=== PATIENT | female | born 2000 | race Caucasian/White ===

== ENCOUNTER 2024-01-31 12:11 | Emergency (ER) | payer OTHER, SELFPAY ==
[2024-01-31 12:29] VITALS: BP 168/115
--- NOTE | 2024-01-31 15:13 | ED.GENMED ---
History of Present Illness
<Jamal Hager PA-C - Last Filed: 01/31/24 19:09>
General
Chief Complaint: Female [employer] Pumper/Gu symptoms
Source: patient
Time Seen by Provider: 01/31/24 14:55
Travel History
Have you had any contact with someone who has COVID-19?: No
Do you have any symptoms of coronavirus? Fever > 100 degrees, chills, cough, shortness of breath, sore throat, loss of taste or smell, muscle aches, or headache?: No
History of Present Illness
History of Present Illness:
23-year-old female with no significant past medical history presenting to the emergency department for evaluation of dysuria x 2 days accompanied with bilateral flank pain that started earlier today and on arrival to the emergency department states
pain was a 10 out of 10 but upon time of my evaluation patient's pain is now a 4 out of 10. She states that about 2 weeks ago was treated for a urinary tract infection by the primary care provider symptoms mostly resolving but that they restarted 2
days ago. Patient states she went back to her primary care on Sunday who performed a urinalysis but that the results of this urine are still unknown. Patient admits to associated nausea but no vomiting. She denies any fevers but does admit to
chills earlier today. 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 Patient has no other concerns
at this time.
Past History
<Jamal Hager PA-C - Last Filed: 01/31/24 19:09>
Past History
ED Past Medical History: None
ED Past Surgical History: None
Social History
Tobacco: Non-smoker
Alcohol: Occasional
Drug: None
Personal: Single
Living: with family
Employment: Employed
Review of Systems
<Jamal Hager PA-C - Last Filed: 01/31/24 19:09>
Review of Systems
All Other Systems: ROS reviewed and negative except as documented in HPI and ROS
Phy Exam
<Jamal Hager PA-C - Last Filed: 01/31/24 19:09>
Physical Exam
Physical Exam:
GENERAL: Alert , in no apparent distress
EYE: clear conjunctiva b/l
HEAD: NCAT
ENT: o/p clr, mmm.
ABDOMEN: Soft, without focal tenderness, no r/g, mild bilateral flank tenderness but left is worse than right
NEUROLOGICAL: Alert and oriented
SKIN: Warm and dry, skin intact.
MUSCULOSKELETAL: No edema, well perfused.
PSYCH: Normal and appropriate interaction.
Scores
<NEW Chaudhary Last Filed: 01/31/24 19:09>
Heart Failure Risk
Heart Failure Risk Score: Not Applicable
Heart Score for Chest Pain Patients
STEMI patient?: Not applicable
Withdrawal Assessment of Alcohol
Withdrawal Assessment Completed?: Not applicable
Course
<NEW Chaudhary Last Filed: 01/31/24 19:09>
Orders/Labs/Results
Orders:
Orders
01/31/24 15:10
Test Result ONCE
01/31/24 15:25
Complete Blood Count/With Diff Urgent
Comprehensive Metabolic Panel Urgent
HCG, Serum Qualitative Screen Urgent
Urinalysis Reflex To Culture Urgent
Date Specimen was Collected: 01/31/24
Time Specimen was Collected: 15:17
Urine Microscopic Reflex Cult Urgent
Chlamydia/GC by PCR Urgent
SOWMYA Source: Urine
Specimen Description:
Source:: URINE
Date Specimen was Collected: 01/31/24
Time Specimen was Collected: 15:17
Urine Culture Urgent
SOWMYA Source: U
Specimen Description:
Date Specimen was Collected: 01/31/24
Time Specimen was Collected: 15:17
01/31/24 16:47
CT Abd/pel Without Iv Or Oral Urgent
Comment:
Reason For Exam: flank pain, urinary symptoms, recent UTI
01/31/24 19:18
Cefuroxime Axetil [Ceftin] 500 mg PO NOW STA
Abnormal Lab Results
01/31/24
15:25
WBC 11.9 H 10^3/uL
(4.8-10.8)
MPV 10.8 H fL
(7.4-10.4)
Absolute Neuts (auto) 10.0 H 10^3/uL
(1.4-6.5)
Absolute Lymphs (auto) 1.1 L 10^3/uL
(1.2-3.4)
Absolute Monos (auto) 0.7 H 10^3/uL
(0.1-0.6)
Neutrophils % 84.1 H %
(42.2-75.2)
Lymphocytes % 9.6 L %
(20.5-51.1)
Carbon Dioxide 21 L mmol/L
(22-30)
Total Bilirubin 1.4 H mg/dl
(0.2-1.3)
ALT 44 H U/L
(0-35)
Urine Ketones 2+ A
(Negative)
Ur Occult Blood Reflex 4+ A
(Negative)
Leukocyte Esterase Rfl 2+ A
(Negative)
Urine RBC 50-60 A /HPF
(0-2)
Urine WBC (Reflex) >100 A /HPF
(0-5)
Urine Bacteria (Reflex) Moderate A
(Negative)
Urine Albumin (Reflex) 1+ A
(Neg - Trace)
01/31/24 15:25
01/31/24 15:25
Vital Signs
Initial and Last Documented VS:
Initial Vital Signs
Temp Pulse Resp BP Pulse Ox
98.3 F 101 18 168/115 98
01/31/24 12:29 01/31/24 12:29 01/31/24 12:29 01/31/24 12:29 01/31/24 12:29
Last Documented Vital Signs
Temp Pulse Resp BP Pulse Ox
99.6 F 101 18 168/115 98
01/31/24 18:48 01/31/24 12:29 01/31/24 12:29 01/31/24 12:29 01/31/24 12:29
<Myriam Prescott PA-C - Last Filed: 02/03/24 07:14>
Orders/Labs/Results
Orders:
Orders
01/31/24 15:10
Test Result ONCE
01/31/24 15:25
Complete Blood Count/With Diff Urgent
Comprehensive Metabolic Panel Urgent
HCG, Serum Qualitative Screen Urgent
Urinalysis Reflex To Culture Urgent
Date Specimen was Collected: 01/31/24
Time Specimen was Collected: 15:17
Urine Microscopic Reflex Cult Urgent
Chlamydia/GC by PCR Urgent
S[facility]MYA Source: Urine
Specimen Description:
Source:: URINE
Date Specimen was Collected: 01/31/24
Time Specimen was Collected: 15:17
Urine Culture Urgent
SOWMYA Source: U
Specimen Description:
Date Specimen was Collected: 01/31/24
Time Specimen was Collected: 15:17
01/31/24 16:47
CT Abd/pel Without Iv Or Oral Urgent
Comment:
Reason For Exam: flank pain, urinary symptoms, recent UTI
01/31/24 19:18
Cefuroxime Axetil [Ceftin] 500 mg PO NOW STA
Abnormal Lab Results
01/31/24
15:25
WBC 11.9 H 10^3/uL
(4.8-10.8)
MPV 10.8 H fL
(7.4-10.4)
Absolute Neuts (auto) 10.0 H 10^3/uL
(1.4-6.5)
Absolute Lymphs (auto) 1.1 L 10^3/uL
(1.2-3.4)
Absolute Monos (auto) 0.7 H 10^3/uL
(0.1-0.6)
Neutrophils % 84.1 H %
(42.2-75.2)
Lymphocytes % 9.6 L %
(20.5-51.1)
Carbon Dioxide 21 L mmol/L
(22-30)
Total Bilirubin 1.4 H mg/dl
(0.2-1.3)
ALT 44 H U/L
(0-35)
Urine Ketones 2+ A
(Negative)
Ur Occult Blood Reflex 4+ A
(Negative)
Leukocyte Esterase Rfl 2+ A
(Negative)
Urine RBC 50-60 A /HPF
(0-2)
Urine WBC (Reflex) >100 A /HPF
(0-5)
Urine Bacteria (Reflex) Moderate A
(Negative)
Urine Albumin (Reflex) 1+ A
(Neg - Trace)
01/31/24 15:25
01/31/24 15:25
Vital Signs
Initial and Last Documented VS:
Initial Vital Signs
Temp Pulse Resp BP Pulse Ox
98.3 F 101 18 168/115 98
01/31/24 12:29 01/31/24 12:29 01/31/24 12:29 01/31/24 12:29 01/31/24 12:29
Last Documented Vital Signs
Temp Pulse Resp BP Pulse Ox
99.6 F 101 18 168/115 98
01/31/24 18:48 01/31/24 12:29 01/31/24 12:29 01/31/24 12:29 01/31/24 12:29
<Jamal Hager PA-C - Last Filed: 01/31/24 19:09>
MDM/Problems Addressed
Differential Diagnosis Includes:
Cystitis, pyelonephritis, renal/ureteral colic, musculoskeletal back pain, , ovarian cyst
MDM/Problems Addressed:
23-year-old female presenting emergency department for evaluation of urinary symptoms x 2 days, recently completed Macrobid for a urinary tract infection a little more than a week and a half ago. On arrival to the emergency department patient notes
that she had considerable 10 out of 10 pain but pain presently is down to a 4 out of 10 without any intervention. Will check labs, urine, hCG. Patient declining anything for pain at this time. Disposition pending.
<Jamal Hager PA-C - Last Filed: 01/31/24 19:09>
*Radiology
Radiology exam reviewed: radiology read reviewed
*Pulse Oximetry
Patient hypoxic: no
*Critical Care Note
Total Time (30-74mins, 75-104mins- exclusive of procedures): Not Applicable
<Jamal Hager PA-C - Last Filed: 01/31/24 19:09>
Comment
Comment:
4:50 PM:. Patient's labs reveal a leukocytosis of 11.9 with a leftward shift. Chemistry is largely unremarkable. Urinalysis shows 4+ microscopic hematuria, 2+ leukocyte esterase, urine RBCs 50-60 and urine WBCs greater than 100. Concern for Santhosh
versus infected kidney stone. CT of the abdomen and pelvis was ordered. Patient continues to decline anything for pain or nausea.
Patient Management
Escalation/DeEscalation of care consider admission/obs:
7 PM: Patient CT scan without any acute abnormalities. Will treat patient with cefuroxime for UTI/pyelonephritis. Patient is aware of return precautions. Otherwise stable for discharge home and outpatient follow-up.
<Myriam Prescott PA-C - Last Filed: 02/03/24 07:14>
Update Note
Update Note:
02/03/2024 0714 AM finalized urine culture pansensitive E. coli on a cephalosporin no treatment change required
ED Attending Note
<Jamal Hager PA-C - Last Filed: 01/31/24 19:09>
-
Portions of this chart may have been created with voice recognition software.� Occasional wrong word or��sound alike� substitutions may have occurred due to the inherent limitations of voice recognition software.
Discharge Plan
Departure
Patient Disposition: Home (Routine Discharge)
Date of Disposition: 01/31/24
Time of Disposition: 18:55
Patient with high blood pressure during this ER visit?: Yes
Discharge Problem:
Pyelonephritis
Instructions: Urinary Tract Infection, Adult (DC)
Prescriptions:
New
cefuroxime axetil 500 mg tablet
500 mg PO BID 10 Days Qty: 20 0RF
No Action
No Meds [No Current Medications]
0
Referrals:
Maria Dolores Castro MD [Family Provider] -
Interventions
Interventions:
*Risk Screen - Suicide Last Done: 01/31/24 12:29
*General Assessment Last Done: 01/31/24 12:29
*Neglect/Abuse Screening Last Done: 01/31/24 12:29
ED- Fall Risk Assessment Last Done: 01/31/24 18:10
*ED COVID-19 Vaccine History Last Done: 01/31/24 19:30
*Nursing Disposition Last Done: 01/31/24 19:30
ED-Female Genitourinary Assessment Last Done: 01/31/24 18:10
Discharge Date and Time
Discharge Date/Time: 01/31/24 19:31
Print Language: LIBERIAN
[2024-01-31 15:40] LABS: Urine Albumin 1+ (Neg - Trace); Urine Bilirubin Negative (Negative); Urine Character Slightly Cloudy (Clear); Urine Color Yellow; Urine Glucose Negative (Negative); Urine Ketone 2+ (Negative); Urine Leukocyte 2+ (Negative); Urine Nitrite Negative (Negative); Urine Occult Blood 4+ (Negative); Urine Specific Gravity 1.015 (<1.030); Urine Urobilinogen Negative (Neg - 1+)
[2024-01-31 15:54] LABS: % Basophils 0.2 % (0-2); % Eosinophils 0.3 % (0-6); % Immature Granulocytes 0.3 % (0-0.5); % Lymphocytes 9.6 % (20.5-51.1); % Monocytes 5.5 % (1.7-9.3); % Neutrophils 84.1 % (42.2-75.2); Absolute Lymphocytes 1.1 10^3/uL (1.2-3.4); Absolute Monocytes 0.7 10^3/uL (0.1-0.6); Hematocrit 39.2 % (37.0-47.0); Hemoglobin 13.2 g/dL (12.0-16.0); Mean Corp Hgb Conc. 33.7 g/dL (33.0-37.0); Mean Corpuscular Hgb 29.2 pg (27.0-31.0); Mean Corpuscular Volume 86.7 fL (81.0-99.0); Mean Platelet Volume 10.8 fL (7.4-10.4); Nucleated Red Blood Cells % 0 %; Platelet Count 223 10^3/uL (130-400); Red Blood Cell Count 4.52 10^6/uL (4.20-5.40); Red Cell Dist. Width 12.4 % (11.5-14.5); White Blood Cell Count 11.9 10^3/uL (4.8-10.8)
[2024-01-31 16:04] LABS: HCG, Serum Qualitative Screen Negative
[2024-01-31 16:05] LABS: Urine Bacteria Moderate (Negative); Urine Red Blood Cell 50-60 /HPF (0-2); Urine White Cell >100 /HPF (0-5)
[2024-01-31 16:07] LABS: ALT (SGPT) 44 U/L (0-35); AST (SGOT) 35 U/L (14-36); Albumin 4.7 g/dl (3.5-5.0); Alkaline Phosphatase 65 U/L (38-126); Blood Urea Nitrogen 8 mg/dl (7-17); Calcium 9.7 mg/dl (8.4-10.2); Carbon Dioxide 21 mmol/L (22-30); Chloride 105 mmol/L (98-107); Glucose 78 mg/dl (70-99); Sodium 136 mmol/L (135-145); Total Bilirubin 1.4 mg/dl (0.2-1.3); Total Protein 7.5 g/dl (6.3-8.2); eGFR > 60.00
[2024-01-31] MEDS: CEFTIN 500 MG PO (19:28)
== END 2024-01-31 19:31 | disposition home or self-care (01) ==
LOC: EMR 12:11
PROVIDERS: Physician Assistant Medical; EMERGENCY PHYSICIAN Emergency Medicine; FAMILY PHYSICIAN Student in an Organized Health Care Education/Training Program
DX: N10 Acute pyelonephritis (principal); B96.20 Unspecified Escherichia coli [E. coli] as the cause of diseases classified elsewhere
CPT/HCPCS: 99284; 74176; 80053; 81003; 81015; 84703; 85025; 87086; 87088; 87186; 87491; 87591